=== PATIENT | male | born 1960 | race Hispanic/Latino ===

== ENCOUNTER 2017-12-27 15:46 | Outpatient (CLI) | payer BC | END 2017-12-27 15:47 | disposition home or self-care (01) | LOC: RAD 15:46 → BICRAD 15:47 | PROVIDERS: ATTEND Internal Medicine | DX: M25.511 Pain in right shoulder (principal); M19.011 Primary osteoarthritis, right shoulder ==

== ENCOUNTER 2019-04-09 13:32 | Outpatient (CLI) | payer BC ==
--- NOTE | 2019-04-10 07:49 | RAD ---
Exam:2 views right knee HISTORY: Pain COMPARISON: None FINDINGS: Preserved joint spaces. No joint effusion. No fracture or malalignment. Extensive atheroscl erosis. IMPRESSION: Unremarkable 2 views right knee.
== END 2019-04-09 13:33 | disposition home or self-care (01) ==
LOC: BICRAD 13:32
PROVIDERS: ATTEND Nurse Practitioner Family
DX: M25.561 Pain in right knee (principal)